=== PATIENT | male | born 1975 | race Caucasian/White ===

== ENCOUNTER 2019-11-14 19:58 | Emergency (ER) | payer MEDICAID, SELFPAY ==
[2019-11-14 19:59] VITALS: BP 126/67; PULSE 82; RESP 16; TEMP 36.7; O2SAT 98; BMI 28.5
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
--- NOTE | 2019-11-14 20:47 | RAD_ITS ---
STUDY: X-RAY - RIGHT KNEE REASON FOR EXAM: Male, 44 years old. RIGHT KNEE PAIN AFTER FALL TECHNIQUE: 4 view(s) of the knee. COMPARISON: None. FINDINGS: Normal visualized distal femur. Normal visualized proximal tibia and fibula. Normal proximal tibiofibular articulation. Normal medial femorotibial compartment. Normal lateral femorotibial compartment. Normal patellofemoral articulation. The soft tissue structures are unremarkable. RAD/Knee 4 or More Views IMPRESSION: Normal x-ray examination of the knee. Electronically Signed: Josias Nugent MD at 21:18 EDT Tel , Service support ,
--- NOTE | 2019-11-14 21:41 | ED.DEP ---
ED Disposition - Plan for ED Patient: Instructions: ED Sprain Knee Prescriptions: Naproxen [Naprosyn] 500 mg PO BID PRN #20 tablet Referrals: Karrie Marino DO [STAFF PHYSICIAN] -
[2019-11-14 21:50] VITALS: RESP 16
== END 2019-11-14 21:58 | disposition home or self-care (01) ==
PROVIDERS: Emergency Provider Emergency Medicine
DX: M25.561 Pain in right knee (principal); F17.200 Nicotine dependence, unspecified, uncomplicated
CPT/HCPCS: 73564; 99283

== ENCOUNTER → 2019-12-16 15:26 | Outpatient (CLI) | payer MEDICAID, SELFPAY ==
[2019-12-08 08:50] VITALS: BMI 28.5
--- NOTE | 2019-12-16 15:28 | MRI_ITS ---
STUDY: MRI RIGHT KNEE REASON FOR EXAM: Male, 44 years old. Pain. TECHNIQUE: Standardized fat and water weighted pulse sequences were obtained in all 3 orthogonal planes. COMPARISON: X-ray November 14, 2019. FINDINGS: Normal medial meniscus. Normal hyaline cartilage of the medial femorotibial compartment. Normal medial femoral condyle and tibial plateau. Normal medial collateral ligamentous complex (MCL). Normal distal semimembranosus, gracilis and semitendinosus tendons. Normal lateral meniscus. There is focal, full thickness articular cartilage loss of the lateral femorotibial compartment. Normal lateral femoral condyle. Healed fracture of the lateral tibial plateau. Normal proximal tibiofibular articulation. Normal lateral collateral (fibular) ligament. Normal popliteus tendon. Normal biceps femoris tendon. Normal anterior cruciate ligament (ACL). Normal posterior cruciate ligament (PCL). Normal congruent patellofemoral articulation. Normal hyaline cartilage of the patellofemoral compartment. Normal medial and lateral patellar retinaculum. Normal quadriceps tendon. Normal patellar tendon. Normal Hoffa''s fat pad. There is a small volume joint effusion. There is a 2.0 cm Espitia''s cyst. The soft tissues are unremarkable. The otherwise visualized osseous structures are unremarkable. MRI/Lower Ext Joint Only (Routine) IMPRESSION: Healed lateral tibial plateau fracture. No meniscal tear. Joint effusion with popliteal cyst. Electronically Signed: Te Felix MD at 16:53 EDT , Service support ,
== END ==
PROVIDERS: Referring Provider Physician Assistant; Visit Provider Physician Assistant
DX: M25.561 Pain in right knee (principal); M23.91 Unspecified internal derangement of right knee
CPT/HCPCS: 73721